=== PATIENT | female | born 1985 | race Caucasian/White ===

== ENCOUNTER 2020-03-20 13:48 | Inpatient (IN) | payer BC, SELFPAY ==
[2020-03-20 13:53] VITALS: BP 133/88; PULSE 73; RESP 18; TEMP 37; O2SAT 99; BMI 36.8
[2020-03-20 14:10] VITALS: BP 133/88; PULSE 73; RESP 16; O2SAT 98
--- NOTE | 2020-03-20 14:13 | W.ED.PSYCH ---
HPI - Psych General: Chief Complaint: Psychiatric Symptoms Stated Complaint: SI Time Seen by Provider: 03/20/20 14:11 Source: patient and RN notes reviewed Mode of arrival: EMS History of Present Illness: HPI Narrative: 34-year-old female brought in by EMS from [facility] emergency department for direct admission to the NPU. Secondary to COVID-19 has to come through our ER first for order placement and to make sure she does not have COVID symptoms. Patient apparently tried to kill herself by cutting herself with a razor blade she is hemodynamically stable she has abrasions on her left wrist that did not need any dressing or repair. She denies any fever cough cold symptoms. She also denies any loss of taste or smell. Denies being in close contact with any persons known to have COVID-19. Associated symptoms: Reports suicidal ideation Review of Systems General: Reports: 10 or more systems reviewed and unremarkable except in HPI and below Const: Denies: fever(s) or chills Eyes: Denies: change in vision ENMT: Denies: throat pain Card: Denies: chest pain Resp: Denies: dyspnea GI: Denies: abdominal pain, nausea, vomiting or change in bowel habits : Denies: difficulty voiding Musc: Denies: muscle weakness Skin/Breast: Denies: rash Neuro: Denies: headache(s) Psych: Reports: hopelessness and suicidal ideation Endo: Denies: polyuria Zuhair/Lymph: Denies: easy bruising or easy bleeding All/Imm: Denies: urticaria Physical Exam Const: COMMON NORMALS: no acute distress, patient oriented x3, alert and well nourished HENMT: COMMON NORMALS: normocephalic and Normal external nose present HEAD & SCALP: normocephalic NOSE: Normal external nose present MOUTH: no trismus Eye: COMMON NORMALS: EOMs intact bilaterally and conjunctivae normal CONJUNCTIVA: Yes conjunctivae normal Neck/C-Spine: COMMON NORMALS: full ROM, no lymphadenopathy and supple CERVICAL SPINE: Yes cervical ROM normal Lymph: LYMPHATIC: no lymphadenopathy noted Resp: COMMON NORMALS: normal respiratory effort, No retractions, No use of accessory muscles and clear to auscultation bilaterally EFFORT & INSPECTION: Yes able to speak in complete sentences AUSCULTATION: clear to auscultation bilaterally Cardio: COMMON NORMALS: regular rate and regular rhythm RATE: regular rate RHYTHM: regular rhythm GI: COMMON NORMALS: Normal to inspection, nondistended, normoactive bowel sounds present, Soft to palpation, non-tender and no masses INSPECTION: Yes normal to inspection AUSCULTATION: Yes normoactive bowel sounds PALPATION: Yes Soft to palpation, No Guarding due to palpation present (GI) and No Rigid due to palpation Back/Pelvis: OTHER: Normal range of motion Extremity: GENERAL: Yes normal exam except as noted Neuro: COMMON NORMALS: patient oriented x3 and CN's II-XII intact bilaterally SENSORIUM/ORIENTATION: Yes alert SPEECH: speech normal Psych: COMMON NORMALS: mental status grossly normal Skin: OTHER: Abrasions to her left wrist that are very minor MDM - Psych MDM Narrative: Medical decision making narrative: Discussed with Dr. Resendiz he was aware of patient coming for direct admission. Will put in her bridge orders. Discharge Plan Discharge Patient Disposition: Admitted As Inpatient Admit Provider: Mayur Resendiz Clinical Impression: Suicidal ideation Condition: Stable Coding Level of Care Code ED Cold Rolling Machine Setter for Chg Fwd Exam Comprehensive
--- NOTE | 2020-03-20 14:54 | PC.NURSE ---
report called to rashmi macias in npu.
[2020-03-20 15:07] VITALS: BP 122/88; PULSE 70; RESP 18; TEMP 36.9; O2SAT 99
[2020-03-20 21:18] VITALS: BP 131/91; PULSE 85; RESP 18; TEMP 36.6; O2SAT 99
[2020-03-20] MEDS: OLANZapine 5 mg ODT PO (22:42)
[2020-03-21 06:00] VITALS: BP 119/85; PULSE 101; RESP 20; TEMP 36.5; O2SAT 98
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
[2020-03-21 14:00] VITALS: BP 124/70; PULSE 75; RESP 18; TEMP 36.3; O2SAT 97
[2020-03-21] MEDS: venlafaxine ER (24HR) 150 mg Capsule PO (18:40)
[2020-03-21 20:35] VITALS: BP 136/88; PULSE 70; RESP 16; TEMP 36.8; O2SAT 100
[2020-03-21] MEDS: hyDROXYzine 25 mg Capsule 50 MG PO (21:35)
[2020-03-21] MEDS: trazodone 50 mg Tablet PO (21:35)
--- NOTE | 2020-03-22 04:05 | PC.NURSE ---
pt given PRN vistaril and trazodone at HS per request. no behavior issues noted.1:1 sitter at side due to pt needing c-pap at sleep.
[2020-03-22 06:00] VITALS: BP 116/73; PULSE 64; RESP 16; TEMP 36.6; O2SAT 98
[2020-03-22] MEDS: venlafaxine ER (24HR) 150 mg Capsule PO (08:42)
[2020-03-22 14:00] VITALS: BP 124/84; PULSE 81; RESP 18; TEMP 36.7
--- NOTE | 2020-03-22 15:03 | P.PN_ITS ---
Subjective NPU Subjective: Interval history: Africa presented today and is reporting that she felt much better with the increased dose in the Effexor. She reports that she is having feelings of self-harm and negativity. She reports that she has been in contact with her family and her family is very supportive and reporting that they miss her which makes her feel good. She lives at home with her mom and her two sisters. We discussed the risks, benefits, and alternatives of monitoring for her one additional dosing of the medication in the morning, and if she is still feeling well and able to contract for safety, considering discharge tomorrow or Wednesday. We worked with the social work team to make sure that she has appropriate follow-up at this time. She understood and agreed to proceed as is documented in this note. Mental Status Exam MSE Comments: This is an obese, white female, with adequate dress, grooming, and eye contact. No abnormal movements except for resolving psychomotor retard ation. Cooperative with exam in no acute distress. Speech was decreased rate and volume. Mood described as better; affect congruent. Thought process, organized. Thought content: patient denied any suicidal or homicidal ideation, there were no delusions reported or noted, patient denied any auditory or visual hallucinations. Attention, concentration, and memory appear intact but were not formally tested. She is alert and oriented times three. Insight and judgment are fair. Impulse control limited. Vitals/I&O/Wt Last Vital Signs Temp 98.1 F 03/22/20 14:00 Pulse 81 03/22/20 14:00 Resp 18 03/22/20 14:00 BP 124/84 03/22/20 14:00 Pulse Ox 98 03/22/20 06:00 A&P Additional A&P Information (1) PTSD (post-traumatic stress disorder): (2) Suicidal ideation: (3) Cluster B personality disorder: This is a 34 year old, white female, with a history of trauma and post-traumatic stress disorder symptoms with recent depression and difficulties that she has begun, facing the issues in a therapeutic environment. She just recently started medications for her symptoms and was having increased tearfulness and inability to contract for safety with some SIB. Continue current medications. Continue q 15-minute checks for safety. Encourage individual, group, and milieu therapy. Involuntary Hold Information 96 Hour Hold: 96 Hour Involuntary Admission: No Attestations NPU Medical Necessity Statement*: Inpatient hospitalization is medically necessary, and the clinically appropriate intervention at this time. We will monitor medications and titrate as indicated. Likely length of stay is 1-3 days. Coding Level of Care Code Acute Healthcare Social Worker for Joya Garcia
[2020-03-22] MEDS: hyDROXYzine 25 mg Capsule 50 MG PO (20:16)
[2020-03-22] MEDS: trazodone 50 mg Tablet PO (20:16)
[2020-03-22 20:32] VITALS: BP 130/83; PULSE 80; RESP 17; TEMP 36.5; O2SAT 97
--- NOTE | 2020-03-22 21:26 | PC.NURSE ---
pt given PRN trazodone and vistaril per request.
--- NOTE | 2020-03-22 21:49 | PC.NURSE ---
pt given PRN trazodone and vistaril per request.
[2020-03-22 22:00] VITALS: BP 130/89; PULSE 80; RESP 17; TEMP 36.5; O2SAT 97
[2020-03-23] MEDS: haloperidol 5 mg Tablet PO (01:16)
[2020-03-23 06:00] VITALS: BP 113/75; PULSE 58; RESP 20; TEMP 36.8; O2SAT 97
[2020-03-23] MEDS: venlafaxine ER (24HR) 150 mg Capsule PO (08:59)
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
[2020-03-23] MEDS: CLONazepam 0.5 mg Tablet PO (09:20)
[2020-03-23 11:47] VITALS: BP 113/75; PULSE 58; RESP 20; TEMP 36.8; O2SAT 97
== END 2020-03-23 12:03 | disposition home or self-care (01) | DRG 881 ==
LOC: ER 14:34 → NP 14:40
PROVIDERS: Admitting Provider Psychiatry & Neurology Psychiatry; Visit Provider Psychiatry & Neurology Psychiatry
DX: F32.9 Major depressive disorder, single episode, unspecified (principal); R45.851 Suicidal ideations; F43.11 Post-traumatic stress disorder, acute; F60.89 Other specific personality disorders; Z62.810 Personal history of physical and sexual abuse in childhood
CPT/HCPCS: 12345; 99284